=== PATIENT | female | born 1945 | race Caucasian/White ===

== ENCOUNTER 2017-08-22 08:10 | Emergency (ER) | payer OTHER ==
[2017-08-22 08:44] LABS: #Basophils 0.1 thou/uL (0.0-0.2); #Eosinphils 0.1 thou/uL (0.0-0.7); #Lymphocytes 2.1 thou/uL (1.20-3.40); #Monocytes 0.4 thou/uL (0.11-0.59); #Neutrophils 5.5 thou/uL (1.40-6.50); %Eosinophils 1.4 % (0.0-10.0); %Lymphocytes 25.6 % (21.0-51.0); %Monocytes 4.5 % (0.0-10.0); %Neutrophils 67.5 % (42.0-75.0); Hemoglobin 15.5 g/dL (12.0-16.0); Mean Corpuscular HGB CONC 33.5 g/dL (32.0-36.0); Mean Corpuscular Hemoglobin 31.4 pg (27.0-31.0); Mean Corpuscular Volume 93.9 fl (81.0-99.0); Mean Platelet Volume 7.7 fL (7.4-10.4); Platelet Count 285 thou/uL (130-400); RBC Distribution Width 11.2 % (11.5-14.5); Red Blood Cell (RBC) Count 4.92 mill/uL (4.20-5.40); White Blood Cell (WBC) Count 8.1 thou/uL (4.8-10.8)
[2017-08-22 08:51] LABS: Anion Gap 16 mmol/L (10-20); BUN (Urea Nitrogen) 12 mg/dL (9.8-20.1); Calc. Creatinine Clearance 0 mL/min (70-130); Calcium 9.9 mg/dL (7.8-10.44); Carbon Dioxide 24 mmol/L (23-31); Chloride 105 mmol/L (98-107); Estimated GFR-MDRD 71; Glucose 102 mg/dL (80-115); Sodium 141 mmol/L (136-145)
[2017-08-22] MEDS ORDERED: Adacel (T-DAP) 0.5 ML VIAL ONE (08:58)
[2017-08-22] MEDS ORDERED: Lidocaine 1% 20 ML MDV ONE (09:13)
[2017-08-22] MEDS ORDERED: Acetaminophen 500 MG TAB ONE (09:23)
[2017-08-22] MEDS ORDERED: Ondansetron HCl/PF 4 MG/2 ML Vial ONE (09:23)
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
[2017-08-22] MEDS ORDERED: Bacitracin Zinc 1 Packet ONE (09:35)
[2017-08-22 09:44] LABS: PTT 20.7 SEC (22.9-36.1)
[2017-08-22 10:14] LABS: INR-International Normal Ratio 0.9; Prothrombin Time 12.3 SEC (12.0-14.7)
== END 2017-08-22 10:21 | disposition short-term general hospital (02) ==
LOC: NAV ERS 08:10
DX: S06.6X0A Traumatic subarachnoid hemorrhage without loss of consciousness, initial encounter (principal); S01.01XA Laceration without foreign body of scalp, initial encounter; S60.222A Contusion of left hand, initial encounter; E03.9 Hypothyroidism, unspecified; I10 Essential (primary) hypertension; M10.9 Gout, unspecified; Z79.899 Other long term (current) drug therapy; V89.2XXA Person injured in unspecified motor-vehicle accident, traffic, initial encounter
CPT/HCPCS: 12002; 70450; 71045; 80048; 85025; 85610; 85730; 90471; 90715; 93005; 96374; 96375; J2001; J2270; J2405